=== PATIENT | male | born 1985 | race Caucasian/White ===

== ENCOUNTER 2018-07-16 11:13 | Emergency (ER) | payer BC ==
[2018-07-16] MEDS ORDERED: MORPHINE 4 MG/ML SYR ONE (11:57)
[2018-07-16] MEDS ORDERED: NA CHLORIDE 0.9% 1,000 ML ONE ×2 (11:58→13:21)
[2018-07-16] MEDS ORDERED: ONDANSETRON 4 MG/2 ML VIAL ONE (11:58)
[2018-07-16 12:02] LABS: Absolute Monocytes 0.5 K/uL (0.1-1.3); Absolute Neutrophil 2.6 K/uL (1.8-8.0); Basophils % 1.1 % (0-1.3); Eosinophils % 3.1 % (0-4.4); Hematocrit 42.8 % (39.6-49.0); Lymphocytes % 37.2 % (15.3-44.8); MPV 9.2 fL (7.6-11.3); Monocytes % 9.2 % (3.3-12.3)
[2018-07-16 12:14] LABS: Urine Bacteria <20 /HPF (NONE SEEN); Urine Culture Reflex Order NOT NEEDED; Urine Mucus 1+ /HPF (NONE SEEN)
--- NOTE | 2018-07-16 12:15 | RAD REPORT ---
EXAM DESCRIPTION: CT - Stone Protocol - 07/16/2018 12:02 pm CLINICAL HISTORY: Left lower quadrant pain COMPARISON: None. TECHNIQUE: Axial 5 mm thick images were obtained without oral or IV contrast. The [id number] span s the entirety of the system including uppermost abdomen and lung bases. All CT scans are performed using dose optimization technique as appropriate and may include automated exposure control or mA/KV adjustment according to patient size. FINDINGS: Mild left-sided hydronephrosis is present secondary to a 4 mm left UVJ calculus. There is a punctate 1 mm calcification in an upper pole calyx on the left. No suspicious renal masses. Isodens e masses and pyelonephritis are not excluded on a stone protocol CT scan. Urinary bladder is fully co ntracted limiting assessment. No bladder calculi. No significant adrenal finding. Imaged portions of the liver, spleen and pancreas show no suspicious findings on non-contrast imaging . Liver shows a diffuse fatty infiltration pattern. Gallbladder and biliary tree within normal limits . No suspicious bowel findings. No hernia, mass or bulky lymphadenopathy noted. No free air, free fluid or inflammatory stranding. No significant bony abnormality. IMPRESSION: Mild left-sided hydronephrosis secondary to a 4 mm left UVJ calculus. Isodense masses and pyelonephritis are not excluded on stone protocol technique.
[2018-07-16 12:21] LABS: Albumin 4.2 g/dL (3.4-5.0); Bilirubin Direct 0.2 mg/dL (0-0.2); Bilirubin Total 0.7 mg/dL (0.2-1.0); Potassium 3.8 mmol/L (3.5-5.1); Protein, Total 7.8 g/dL (6.4-8.2)
[2018-07-16] MEDS ORDERED: FENTANYL CITR 100 MCG/2 ML ONE (12:24)
[2018-07-16] MEDS ORDERED: TAMSULOSIN 0.4 MG SR CAP ONE (12:51)
[2018-07-16] MEDS ORDERED: KETOROLAC 30 MG/ML INJ ONE (12:52)
[2018-07-16 13:21] LABS: Urine Blood 2+ (NEG); Urine Glucose NEGATIVE (NEG); Urine Protein NEGATIVE (NEG); Urine pH 5.5 (5.0-7.0)
--- NOTE | 2018-07-16 14:24 | ER ---
Nurse's Notes [facility] Name: Edison Estrada Age: 33 yrs Sex: Male : 1985 Arrival Date: 07/16/2018 Time: 11:14 Bed 17 [facility] MD: Raymond Calero B Diagnosis: Calculus of kidney and ureter Presentation: 07/16 11:20 Presenting complaint: Patient states: sharp LLQ pain that radiates towards L mid back ss that began 1 hour ago with nausea. Pt reports that the pain comes in waves. Transition of care: patient was not received from another setting of care. Onset of symptoms was July 16, 2018. Risk Assessment: Do you want to hurt yourself or someone else? Patient reports no desire to harm self or others. Initial Sepsis Screen: Does the patient meet any 2 criteria? No. Patient's initial sepsis screen is negative. Does the patient have a suspected source of infection? No. Patient's initial sepsis screen is negative. Care prior to arrival: None. 11:20 Method Of Arrival: Ambulatory ss 11:20 Acuity: [place] 3 ss Historical: - Allergies: 11:21 No Known Allergies; ss - PMHx: 11:21 Gout; ADD/ADHD; ss - PSHx: 11:21 None; ss - Immunization history:: Adult Immunizations up to date. - Social history:: Smoking status: Patient uses tobacco products, cigars. - Ebola Screening: : Patient denies exposure to infectious person Patient denies travel to an Ebola-affected area in the 21 days before illness onset. Screenin:50 Abuse screen: Denies threats or abuse. Nutritional screening: No deficits noted. aa5 Tuberculosis screening: No symptoms or risk factors identified. Fall Risk None identified. Assessment: 11:38 General: Appears uncomfortable, Behavior is cooperative. Pain: Complains of pain in aa5 left lower quadrant Pain radiates to left flank and left groin Pain currently is 8 out of 10 on a pain scale. Quality of pain is described as sharp, shooting, Pain began 1 hour ago. Is continuous. Neuro: Level of Consciousness is awake, alert, obeys commands, Oriented to person, place, time, situation. Cardiovascular: Heart tones S1 S2 present Rhythm is regular. Respiratory: Airway is patent Respiratory effort is even, unlabored, Respiratory pattern is regular, symmetrical. GI: Abdomen is round non-distended, Bowel sounds present X 4 quads. Abd is soft and non tender X 4 quads. Reports nausea, Patient currently denies vomiting. : Denies burning with urination, inability to void. EENT: No signs and/or symptoms were reported regarding the EENT system. Derm: Skin is pink, warm \T\ dry. Musculoskeletal: Range of motion: intact in all extremities. 12:10 Reassessment: Patient appears restless, uncomfortable. Is groaning and grimacing, aj1 states that he has not gotten any pain relief from previously administered morphine. Notified MODESTO White. Order received. 12:37 Reassessment: Patient is alert, oriented x 3, equal unlabored respirations, skin aa5 warm/dry/pink. Patient states symptoms have not improved. 13:00 Reassessment: Patient is alert, oriented x 3, equal unlabored respirations, skin aa5 warm/dry/pink. Patient states feeling better. Pain: Pain currently is 2 out of 10 on a pain scale. 13:20 Reassessment: Pt given water for PO challenge. . aa5 14:12 Reassessment: Patient is alert, oriented x 3, equal unlabored respirations, skin aa5 warm/dry/pink. Patient states feeling better. Pt tolerated water well, denies vomiting, denies nausea. . 14:30 Reassessment: Patient is alert, oriented x 3, equal unlabored respirations, skin aa5 warm/dry/pink. Vital Signs: 11:21 BP 142 / 104; Pulse 67; Resp 18; Temp 97.7; Pulse Ox 98% on R/A; Weight 113.4 kg; Height 6 ft. 0 in. (182.88 cm); Pain 8/10; 11:55 BP 145 / 77; Pulse 64; Resp 18 S; Pulse Ox 97% on R/A; aa5 12:59 BP 147 / 90; Pulse 58; Resp 16 S; Pulse Ox 95% on R/A; Pain 2/10; aa5 14:13 BP 112 / 74; Pulse 54; Resp 16 S; Temp 97.7(O); Pulse Ox 100% on R/A; aa5 11:21 Body Mass Index 33.91 (113.40 kg, 182.88 cm) ED Course: 11:14 Patient arrived in ED. as 11:14 Raymond Calero MD is Private Physician. as 11:21 Triage completed. ss 11:21 Arm band placed on left wrist. ss 11:26 Doreen Delatorre, CESAR is Primary Nurse. aa5 11:31 Bruce Munoz PA is PHCP. jmm 11:31 Galileo Fatima MD is Attending Physician. jmm 11:38 Patient has correct armband on for positive identification. Bed in low position. Call aa5 light in reach. Side rails up X2. 11:38 Urine collected: clean catch specimen, clear. aa5 11:40 Initial lab(s) drawn, by me, sent to lab. Inserted saline lock: 20 gauge in right aa5 forearm, using aseptic technique. Blood collected. 12:03 CT Stone Protocol In Process Unspecified. EDMS 14:23 Corey Arvizu MD is Referral Physician. jmm 14:30 No provider procedures requiring assistance completed. IV discontinued, intact, aa5 bleeding controlled, No redness/swelling at site. Pressure dressing applied. Administered Medications: 11:45 Drug: NS 0.9% 1000 ml Route: IV; Rate: 1 bolus; Site: right forearm; aa5 12:37 Follow up: IV Status: Completed infusion; IV Intake: 1000ml aa5 11:45 Drug: Zofran 4 mg Route: IVP; Site: right forearm; aa5 11:55 Follow up: Response: No adverse reaction aa5 11:47 Drug: morphine 4 mg Route: IVP; Site: right forearm; aa5 11:55 Follow up: Response: No adverse reaction aa5 12:13 Drug: fentaNYL (PF) 50 mcg Route: IVP; Site: right antecubital; aj1 12:37 Follow up: Response: No adverse reaction aa5 12:37 Drug: Flomax 0.4 mg Route: PO; aa5 13:00 Follow up: Response: No adverse reaction aa5 12:37 Drug: Ketorolac 30 mg Route: IVP; Site: right forearm; aa5 13:00 Follow up: Response: No adverse reaction; Marked relief of symptoms aa5 13:00 Drug: NS 0.9% 1000 ml Route: IV; Rate: 1 bolus; Site: right forearm; aa5 14:13 Follow up: IV Status: Completed infusion; IV Intake: 1000ml aa5 Intake: 12:37 IV: 1000ml; Total: 1000ml. aa5 14:13 IV: 1000ml; Total: 2000ml. aa5 Outcome: 14:23 Discharge ordered by . radha 14:30 Discharged to home ambulatory, with significant other. aa5 14:30 Condition: improved 14:30 Discharge instructions given to patient, Instructed on discharge instructions, follow up and referral plans. medication usage, Demonstrated understanding of instructions, follow-up care, medications, Prescriptions given X 3. 14:35 Patient left the ED. aa5 Signatures: Dispatcher [employer] EDMS Shantelle Leigh RN RN aj1 Bruce Munoz PA PA jmm Martinez, Amelia as Calderon, Audri, RN RN aa5 Adeline Overton RN RN ss Corrections: (The following items were deleted from the chart) 13:00 12:59 BP 147 / 90; Pulse 58bpm; Resp 16bpm; Spontaneous; Pulse Ox 95% RA; aa5 aa5 14:20 12:10 IV Status: Completed infusion; IV Intake: 1000ml aa5 aa5
--- NOTE | 2018-07-16 14:24 | EDPHYS ---
Physician Documentation [facility] Name: Edison Estrada Age: 33 yrs Sex: Male : 1985 Arrival Date: 07/16/2018 Time: 11:14 Bed 17 [facility] MD: Raymond Calero B ED Physician Galileo Fatima HPI: 07/16 11:40 This 33 yrs old Male presents to ER via Ambulatory with complaints of Flank jmm Pain, Abdominal Pain. 11:40 The patient complains of pain in the left flank. Onset: The symptoms/episode jmm began/occurred acutely. Associated signs and symptoms: Pertinent positives: nausea, Pertinent negatives: fever. This is a 33 year old male with a history of gout, ADD/ADHD that presents to the ED with complaints of left flank pain beginning approx 1 hour ago. Denies previous history of kidney stone. . Historical: - Allergies: 11:21 No Known Allergies; ss - PMHx: 11:21 Gout; ADD/ADHD; ss - PSHx: 11:21 None; ss - Immunization history:: Adult Immunizations up to date. - Social history:: Smoking status: Patient uses tobacco products, cigars. - Ebola Screening: : Patient denies exposure to infectious person Patient denies travel to an Ebola-affected area in the 21 days before illness onset. ROS: 11:40 Constitutional: Negative for fever, chills, and weight loss, Cardiovascular: Negative jmm for chest pain, palpitations, and edema, Respiratory: Negative for shortness of breath, cough, wheezing, and pleuritic chest pain. 11:40 Back: Negative for injury and pain, MS/Extremity: Negative for injury and deformity, Skin: Negative for injury, rash, and discoloration, Neuro: Negative for headache, weakness, numbness, tingling, and seizure, Psych: Negative for depression, anxiety, suicide ideation, homicidal ideation, and hallucinations. 11:40 Abdomen/GI: Positive for abdominal pain, nausea and vomiting. 11:40 Back: Positive for flank pain, on the left. 11:40 All other systems are negative. Exam: 11:40 Head/Face: atraumatic. Chest/axilla: Normal chest wall appearance and motion. jmm Cardiovascular: Regular rate and rhythm. No edema appreciated Respiratory: Normal respirations, no respiratory distress appreciated 11:40 Constitutional: The patient appears alert, awake, uncomfortable. 11:40 Abdomen/GI: Inspection: abdomen appears normal, Bowel sounds: normal, Palpation: soft, mild abdominal tenderness, in the left lower quadrant. 11:40 Back: CVA tenderness, that is moderate, is noted on the left. 11:40 Musculoskeletal/extremity: ROM: intact in all extremities. 11:40 Skin: Appearance: Color: normal in color. 11:40 Neuro: Orientation: is normal, Mentation: is normal, Memory: is normal. 11:40 Psych: Behavior/mood is pleasant, cooperative. Vital Signs: 11:21 BP 142 / 104; Pulse 67; Resp 18; Temp 97.7; Pulse Ox 98% on R/A; Weight 113.4 kg; ss Height 6 ft. 0 in. (182.88 cm); Pain 8/10; 11:55 BP 145 / 77; Pulse 64; Resp 18 S; Pulse Ox 97% on R/A; aa5 12:59 BP 147 / 90; Pulse 58; Resp 16 S; Pulse Ox 95% on R/A; Pain 2/10; aa5 14:13 BP 112 / 74; Pulse 54; Resp 16 S; Temp 97.7(O); Pulse Ox 100% on R/A; aa5 11:21 Body Mass Index 33.91 (113.40 kg, 182.88 cm) ss MDM: 11:40 Patient medically screened. [facility] 14:22 Data reviewed: vital signs, nurses notes. Counseling: I had a detailed discussion with [facility] the patient and/or guardian regarding: the historical points, exam findings, and any diagnostic results supporting the discharge/admit diagnosis, the need for outpatient follow up, to return to the emergency department if symptoms worsen or persist or if there are any questions or concerns that arise at home. 14:22 ED course: Pain is relieved in the ED. Patient is advised to follow up with urology for [facility] further evaluation. I discussed lipase results with the patient along with return precautions. Patient understood and agrees with the plan of care. . 07/16 11:40 Order name: Basic Metabolic Panel [facility] 07/16 11:40 Order name: CBC with Diff; Complete Time: 12:07 [facility] 07/16 11:40 Order name: Creatinine for Radiology; Complete Time: 12:18 [facility] 07/16 11:40 Order name: Hepatic Function; Complete Time: 12:32 [facility] 07/16 11:40 Order name: Lipase; Complete Time: 12:32 [facility] 07/16 11:42 Order name: Basic Metabolic Panel; Complete Time: 12:32 EDMS 07/16 11:40 Order name: CT Stone Protocol; Complete Time: 12:18 [facility] 07/16 11:42 Order name: Urine Microscopic Only; Complete Time: 12:18 aa5 07/16 12:03 Order name: Urine Dipstick--Ancillary (enter results); Complete Time: 13:25 3 07/16 11:40 Order name: IV Saline Lock; Complete Time: 11:42 [facility] 07/16 11:40 Order name: Labs collected and sent; Complete Time: 11:42 [facility] 07/16 13:11 Order name: PO challenge; Complete Time: 13:21 jm Administered Medications: 11:45 Drug: NS 0.9% 1000 ml Route: IV; Rate: 1 bolus; Site: right forearm; aa5 12:37 Follow up: IV Status: Completed infusion; IV Intake: 1000ml aa5 11:45 Drug: Zofran 4 mg Route: IVP; Site: right forearm; aa5 11:55 Follow up: Response: No adverse reaction aa5 11:47 Drug: morphine 4 mg Route: IVP; Site: right forearm; aa5 11:55 Follow up: Response: No adverse reaction aa5 12:13 Drug: fentaNYL (PF) 50 mcg Route: IVP; Site: right antecubital; aj1 12:37 Follow up: Response: No adverse reaction aa5 12:37 Drug: Flomax 0.4 mg Route: PO; aa5 13:00 Follow up: Response: No adverse reaction aa5 12:37 Drug: Ketorolac 30 mg Route: IVP; Site: right forearm; aa5 13:00 Follow up: Response: No adverse reaction; Marked relief of symptoms aa5 13:00 Drug: NS 0.9% 1000 ml Route: IV; Rate: 1 bolus; Site: right forearm; aa5 14:13 Follow up: IV Status: Completed infusion; IV Intake: 1000ml aa5 Disposition: 07/16/18 14:23 Discharged to Home. Impression: Calculus of kidney and ureter. - Condition is Stable. - Discharge Instructions: Kidney Stones. - Prescriptions for Zofran ODT 4 mg Oral tablet,disintegrating - place 1 tablet by TRANSLINGUAL route every 4-6 hours; 20 tablet. Flomax 0.4 mg Oral Capsule, Sust. Release 24 hr - take 1 capsule by ORAL route once daily 1/2 hour following the same meal each day; 30 capsule. Ultram 50 mg Oral Tablet - take 1 tablet by ORAL route every 6 hours As needed; 20 tablet. - Medication Reconciliation Form, Thank You Letter, Antibiotic Education, Prescription Opioid Use form. - Follow up: Corey Arvizu MD; When: 2 - 3 days; Reason: Recheck today's complaints, Continuance of care, Re-evaluation by your physician. Addendum: 07/17/2018 16:17 Co-signature as Attending Physician, Galileo Fatima MD. g s Signatures: Dispatcher [employer] EDShantelle Jenkins RN RN aj1 Bruce Munoz PA PA Doreen Estrella RN RN aa5 Adeline Overton RN RN ss Galileo Fatima MD MD Corrections: (The following items were deleted from the chart) 07/16 14:35 14:23 07/16/2018 14:23 Discharged to Home. Impression: Calculus of kidney and ureter. aa5 Condition is Stable. Forms are Medication Reconciliation Form, Thank You Letter, Antibiotic Education, Prescription Opioid Use. Follow up: Corey Arvizu; When: 2 - 3 days; Reason: Recheck today's complaints, Continuance of care, Re-evaluation by your physician. radha
== END 2018-07-16 14:35 | disposition home or self-care (01) ==
LOC: ER 11:13
DX: N20.2 Calculus of kidney with calculus of ureter (principal); Z72.0 Tobacco use
CPT/HCPCS: 36415; 74176; 76377; 80048; 80076; 81003; 81015; 83690; 85025; 96361; 96374; 96375; 99284; J2405; J3010; J7030